=== PATIENT | male | born 1985 | race African-American/Black ===

== ENCOUNTER 2016-08-11 22:49 | Emergency (ER) | payer SELFPAY ==
--- NOTE | ~2016-08-11 | ER ---
PATIENT'S NAME: DANIEL YOUNG [facility] AGE: 31 Y [address] ROOM: [place] [address] LOCATION[facility] ADMIT DATE: 08/11/2016 ER/Outpatient Report DISCHARGE DATE: 08/11/2016 FAMILY PHYSICIAN: PHYSICIAN, NO ATTENDING PHYSICIAN: Leon Luevano Time of Arrival: 2252 hours. Time of Evaluation: 2258 hours. CHIEF COMPLAINT: Finger laceration. HISTORY OF PRESENT ILLNESS: The patient states approximately 30 minutes prior to arrival, he got upset and punched a fan, ended up cutting his right index finger at the proximal joint area. He denies any numbness or tingling of his finger. He has no other injury from the incident. ALLERGIES: NO KNOWN ALLERGIES. MEDICATIONS: No current medications. PAST MEDICAL HISTORY: Benign. SURGERIES: Lymph node removal. 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 Denies use of tobacco. He has been drinking this evening. Unsure of his last tetanus shot. REVIEW OF SYSTEMS: All negative other than those mentioned in the HPI. PHYSICAL EXAMINATION: VITAL SIGNS: He weighed 85.9 kg, blood pressure is 111/76, pulse is 77, respirations 18, temperature of 97.9, O2 saturation is 97% on room air. GENERAL: He is awake, alert, and oriented x4. SKIN: [place], warm, and dry. RESPIRATIONS: Even and nonlabored. EXTREMITIES: The patient has a 3 cm laceration to the left proximal index finger over the proximal joint area. He has good movement of his finger, good PATIENT'S NAME: DANIEL YOUNG [facility] AGE: 31 Y [address] ROOM: [place] [address] LOCATION: [facility] ADMIT DATE: 08/11/2016 ER/Outpatient Report DISCHARGE DATE: 08/11/2016 FAMILY PHYSICIAN: PHYSICIAN, NO ATTENDING PHYSICIAN: Leon Luevano sensation to the tip of his finger. The finger is pink. Nail beds are pink with less than 2 second mike. LABORATORY DATA AND X-RAYS: X-ray was completed. No acute abnormality was seen. Reviewed with Dr. Luevano. Area was cleansed well with saline and Betadine. 2 mL of 1% plain Xylocaine were used to anesthetize the area. It was then closed with 4-0 Ethilon x6 stitches. The patient tolerated the procedure well. His tetanus was updated with a Tdap. IMPRESSION: Finger laceration. PLAN: Home, rest. Keep the dressing on tonight, may change in the morning. He is to keep it clean and dry. Stitches should come out in 7-10 days. He was given a card for the offices here in town as he states he does not have a primary. He verbalized understanding. KATRIN FELDER APRN FOR DO ADEEL ACUÑA/varsha /[id number] d: 08/12/16 0731 t: 08/16/16 1504, OUTPATIENT REPORT
== END 2016-08-11 23:47 | disposition disaster alternative care site (69) ==
LOC: GACC 22:49
PROC: 0HQGXZZ Repair Left Hand Skin, External Approach (ICD-10-PCS; principal; 2016-08-11)
DX: S61.210A Laceration without foreign body of right index finger without damage to nail, initial encounter (principal); Z23 Encounter for immunization; W45.8XXA Other foreign body or object entering through skin, initial encounter

== ENCOUNTER 2016-08-31 10:56 | Emergency (ER) | payer SELFPAY ==
--- NOTE | ~2016-08-31 | ER ---
PATIENT'S NAME: DANIEL YOUNG [facility] AGE: 31 Y [address] ROOM: [place] [address] LOCATION: [facility] ADMIT DATE: 08/31/2016 ER/Outpatient Report DISCHARGE DATE: 08/31/2016 FAMILY PHYSICIAN: PHYSICIAN, NO ATTENDING PHYSICIAN: Inés Galicia TIME OF ARRIVAL: 1056 hours. TIME SEEN: 1100 hours. IDENTIFICATION: A 31-year-old male. CHIEF COMPLAINT: Rash. HISTORY OF PRESENT ILLNESS: The patient has had a rash around his abdomen around his waistline for approximately 2 weeks. Now, he has it in his axilla, on the back of his neck, and a little bit on his inner thighs. He said it is pruritic in nature. The patient has never had an itch like this before. No contact allergen exposure that we could identify. He did have a tetanus shot 2-1/2 weeks ago prior to this starting, probably unrelated. He had a laceration of his finger on August 11 and had his tetanus boosted. Again, no allergen exposure that we could identify. He lives in an apartment with roommates, and they do not have any itching rash. He does work at [employer]. PAST MEDICAL HISTORY: ALLERGIES: PEANUTS. CURRENT MEDICATIONS: Denies. MEDICAL PROBLEMS: Denies. No prior surgeries or hospitalizations. FAMILY HISTORY: Mother with pacemaker. Father with throat cancer at 21 years of age. SOCIAL HISTORY: The patient lives here in [place]. He did attend [employer]. He is originally from PATIENT'S NAME: DANIEL YOUNG [facility] AGE: 31 Y [address] ROOM: [place] [address] LOCATION: [facility] ADMIT DATE: 08/31/2016 ER/Outpatient Report DISCHARGE DATE: 08/31/2016 FAMILY PHYSICIAN: PHYSICIAN, NO ATTENDING PHYSICIAN: Inés Galicia [place]. He works at [employer]. Tobacco use: Half pack per day for 7 years. Alcohol use: On the weekends. Drug use: Denies. REVIEW OF SYSTEMS: All systems reviewed and negative other than what is noted in the HPI. PHYSICAL EXAMINATION: VITAL SIGNS: Weight 86.3 kg, blood pressure 118/83, pulse 62, respirations 18, temperature 98.2, and saturation is 98%. GENERAL: A 31-year-old male, in no acute distress. HEENT: Head: Normocephalic, atraumatic. Ears: TMs translucent, both ears. Eyes: Pupils equal and reactive to light and accommodation. Extraocular movements intact. Nose: Mucosa pink, no lesions. Mouth: No lesions. Pharynx: Benign. NECK: Supple. No lymphadenopathy. No nuchal rigidity. LUNGS: Clear to auscultation. HEART: Regular rate and rhythm. ABDOMEN: Bowel sounds present. Soft and nondistended. No hepatosplenomegaly. No palpable masses. Nontender. SKIN: [place], warm, and dry. The patient has a dry, scaly rash along his waistline, a little bit in his groin. He has some diffuse papular rash on his face. He has some seborrheic dermatitis on the lobes of his ears. He has a dry, scaly, pruritic rash in his axilla. He has no lesions in the web spaces of his fingers, and no lesions in his toes. 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 PLAN: Prednisone 30 mg b.i.d. for 2 days, 20 mg b.i.d. for 2 days, 15 mg b.i.d. for 2 days, 20 mg daily for 2 days, 10 mg daily for 2 days, and 5 mg daily for 2 days. Benadryl as needed for itching, 25 to 50 mg every 4 to 6 hours. Aveeno bath as needed. Okay to use the ralp-ebk-tsnrxfr hydrocortisone cream that he has picked up sparingly b.i.d. for 7 days. Eucerin cream b.i.d. Follow up with Dermatology, either Dr. Dalal, Dr. Preciado, or Dr. Mandujano, and I did provide their phone numbers. This week, establish care with a primary care physician and follow up. The patient understands and agrees, and all questions have been answered. I did discuss with him that the differential diagnosis could include scabies; however, he does not have any scabies-like lesions, and his roommates do not have any rash. At this point, we will not treat with Elimite, but if he is not getting any better, that would be my next plan. The patient understands and agrees, and all questions have been answered. PATIENT'S NAME: DANIEL YOUNG [facility] AGE: 31 Y [address] ROOM: [place] [address] LOCATION: [facility] ADMIT DATE: 08/31/2016 ER/Outpatient Report DISCHARGE DATE: 08/31/2016 FAMILY PHYSICIAN: JANET GARCIA ATTENDING PHYSICIAN: Inés Galicia INÉS GALICIA MD CAR/modl /[id number] d: 08/31/16 1806 t: 09/07/16 1423, OUTPATIENT REPORT
== END 2016-08-31 11:25 | disposition disaster alternative care site (69) ==
LOC: GMED 10:56
DX: L30.9 Dermatitis, unspecified (principal); Z91.010 Allergy to peanuts

== ENCOUNTER 2016-09-29 13:28 | Emergency (ER) | payer SELFPAY ==
--- NOTE | ~2016-09-29 | ER ---
PATIENT'S NAME: DANIEL YOUNG [facility] AGE: 31 Y [address] ROOM: [place] [address] LOCATION: [facility] ADMIT DATE: 09/29/2016 ER/Outpatient Report DISCHARGE DATE: 09/29/2016 FAMILY PHYSICIAN: PHYSICIAN, NO ATTENDING PHYSICIAN: Batsheva Carlos Time of Arrival: 1328 hours. Time Seen: 1342 hours. IDENTIFICATION: A 31-year-old male. CHIEF COMPLAINT: Rash. Dr. Ibanez, 3rd year resident, evaluated the patient. Please refer her note. I saw and evaluated the patient. Discussed with resident and agree with the resident's findings and plan as documented in the resident's note. I contacted the patient with his lab result; outstanding hepatitis testing has not yet returned as well as his RPR, those will be given to him when they are back. BATSHEVA CARLOS MD CAR/modl /[id number] d: 09/29/162319 t: 10/01/161941, OUTPATIENT REPORT
--- NOTE | ~2016-09-29 | ER ---
PATIENT'S NAME: DANIEL YOUNG [facility] AGE: 31 Y [address] ROOM: [place] [address] LOCATION: [facility] ADMIT DATE: 09/29/2016 ER/Outpatient Report DISCHARGE DATE: 09/29/2016 FAMILY PHYSICIAN: PHYSICIAN, NO ATTENDING PHYSICIAN: Batsheva Carlos HISTORY: The patient is a 31-year-old male, who came in with the chief complaint of worsening of his rash. He was seen several weeks ago for a similar rash, but used prednisone and some antibiotic and stated that after the treatment things got a little bit better, but then once the treatment stopped, the things "came back with a vengeance." Says he feels like there are nodules under his bilateral armpits and in his neck and along his ribcage. The patient has not been taking anything zhnc-iee-fnuzaro for this, never had anything like this before. Denies fever, chills, nausea, vomiting, abdominal pain, chest pain, shortness of breath, headaches, vision changes, increased swelling, or urinary symptoms. The patient is sexually active. States he has been with the same partner for over a year. The patient states that he has been using Cetaphil lotion daily without much relief. SOCIAL HISTORY: Smokes half a pack a day for 10 years. Alcohol use 3-4 times a week and denies illicit drug use. ALLERGIES: THE PATIENT HAS NO KNOWN MEDICAL ALLERGIES. MEDICATIONS: He is not on any medications at this time. PHYSICAL EXAMINATION: VITALS: Weight is 85.6 kg, height 6 feet 2 inches. Blood pressure 129/72, pulse 78, respirations 18, temp 98, O2 sats 99% on room air. GENERAL: Denies any pain. The patient is in no acute distress. Alert and oriented x4. HEENT: Normal upon inspection with no drainage, no conjunctivitis. Moist mucous membranes. Right ear with erythematous ear canal with mild exudate. Tympanic membrane mildly erythematous and mid ear effusion that is nonpurulent. Left ear with mid ear effusion that is not purulent. Ear canal without any acute findings. NECK: No lymphadenopathy appreciated in the neck. CHEST: Clear to auscultation bilaterally. Nontender. CARDIOVASCULAR: Regular rate and rhythm. No murmurs, rubs, or gallops. ABDOMEN: Normal upon inspection. Soft, nontender, nondistended. Normal bowel sounds. PATIENT'S NAME: DANIEL YOUNG [facility] AGE: 31 Y [address] ROOM: [place] [address] LOCATION: [facility] ADMIT DATE: 09/29/2016 ER/Outpatient Report DISCHARGE DATE: 09/29/2016 FAMILY PHYSICIAN: PHYSICIAN, NO ATTENDING PHYSICIAN: Batsheva Carlos EXTREMITIES: Lower extremities, nontender. No pedal edema. He is able to move all extremities. Bilateral armpits with what appears to be small enlarged lymph nodes, just one bilaterally. SKIN: Warm and dry. He has a patchy nonscaling rash, nonerythematous, locating around the circumference of the neck, in the flexor surface of the armpits bilaterally, along the lower abdomen into the creases of the groin, and behind the knees. Mccarty lamp was used and several spots of fluorescence were seen in these locations. The patient denies any itching. There is no bleeding. No exudate. REVIEW OF SYSTEMS: A complete and comprehensive review of systems was completed and is negative except as noted above. LABORATORY DATA: The patient underwent lab work just to assess for immune function. CBC was within normal limits. CMP was within normal limits. HIV, syphilis, and hepatitis panel are all pending. IMPRESSION: 1. Severe eczema most likely secondary to yeast infection. 2. Otitis externa, right ear. The patient was given a script for Ciprodex 4 drops in the right ear 2 times a day for 7 days and also given a script for Diflucan to be taken once now and then once weekly x3 more weeks. The patient has an appointment with a hot dog vendor in about 3 months. The patient was instructed to keep this appointment. I informed the patient of the previous providers given to him for Dermatology if he would like to inquire about receiving a sooner appointment with those providers. The patient was instructed to continue to keep the areas of the eczematous rash clean and dry and apply the moisturizer up to 3 times daily as needed. The patient was also instructed he can try [id number] Zyrtec or Claritin, and he was told he will be informed of his pending results upon availability. The patient was discharged home in good condition. RUTH ANN CHAMPAGNE MD RESIDENT FOR MD BENJA MANN/varsha /[id number] d: 09/29/16 2338 t: 10/01/16 1945, OUTPATIENT REPORT
[2016-09-29 15:02] LABS: BASOPHIL % 0.5 %; EOSINOPHIL # 0.1 K/uL (0.0-0.5); EOSINOPHIL % 2.9 %; HEMATOCRIT 44.3 % (37.0-53.0); HEMOGLOBIN 14.9 g/dL (12.0-17.0); IMMATURE GRANULOCYTE % 0.2 %; LYMPHOCYTE # 1.4 K/uL (0.8-4.0); LYMPHOCYTE % 31.4 %; MCH 30.5 pg (27.0-34.0); MCHC 33.6 gm/dL (32.0-36.5); MCV 90.8 fl (83.0-98.0); MONOCYTE # 0.4 K/uL (0.0-1.0); MONOCYTE % 9.5 %; MPV 8.8 fl (9.4-12.4); NEUTROPHIL # (ANC) 2.5 K/uL (1.4-9.0); NEUTROPHIL % 55.5 %; NRBC % 0 /100WBC (0-0.00); PLATELET COUNT 232 K/uL (150-450); RBC 4.88 M/uL (4.00-6.00); RDW-CV 14.3 % (11.9-14.6); WBC 4.4 K/uL (4.0-11.0)
[2016-09-29 15:18] LABS: ALBUMIN 3.8 gm/dL (3.5-5.0); ALK PHOS 52 IU/L (33-138); ALT 20 IU/L (12-78); ANION GAP 9.9 (10.0-19.0); AST 20 IU/L (10-40); BLOOD UREA NITROGEN 8 mg/dL (6-24); CALCIUM 8.8 mg/dL (8.5-10.5); CHLORIDE 106 mMol/L (96-110); CO2 30 mMol/L (22-32); CREATININE 0.9 mg/dL (0.6-1.3); ESTIMATED GFR (MDRD EQUATION) > 60; POTASSIUM 3.9 mMol/L (3.7-5.1); SODIUM 142 mMol/L (135-145); TOTAL PROTEIN 7.3 g/dL (6.0-8.4)
== END 2016-09-29 15:00 | disposition disaster alternative care site (69) ==
LOC: GMED 13:28
PROVIDERS: Family Medicine
DX: L30.9 Dermatitis, unspecified (principal); H60.91 Unspecified otitis externa, right ear; F17.210 Nicotine dependence, cigarettes, uncomplicated